=== PATIENT | male | born 1995 | race Asian ===

== ENCOUNTER 2017-12-11 07:51 | Day surgery (SDC) | payer OTHER, SELFPAY ==
[2017-12-06 08:55] VITALS: BMI 24.4
[2017-12-11] VITALS (8 sets, daily range): BP systolic 110–124; BP diastolic 69–80; PULSE 49–87; RESP 10–22; TEMP 36.3–37.3; O2SAT 97–100; BMI 24.4
--- NOTE | 2017-12-11 08:26 | SUR.OPER ---
Supine on padded OR bed, head on pillow, arms secured on padded arm boards at <90 degrees abduction, legs uncrossed, safety across abdomen, tape over blanket over nonoperative leg.
[2017-12-11] MEDS: LACTATED RINGERS 1,000 ML 42 ML IV (08:31)
--- NOTE | 2017-12-11 08:46 | PM.PREOP ---
Pre-operative Note Interval Note Pre-op Check: Yes History & Physical Reviewed by Physician and Yes Exam Performed Changes: No
[2017-12-11] MEDS: CEFAZOLIN 2 GM/100 ML FROZ.PIGGY IV (08:56)
[2017-12-11] MEDS: SODIUM CHLORIDE IRRIG SOLUTION 3,000 ML, EPINEPHrine 1 MG IRR (09:30)
[2017-12-11] MEDS: BUPIVACAINE 0.25% (PF) VIAL 30 ML INJ (09:31)
[2017-12-11] MEDS: fentaNYL 100 MCG/2 ML INJ 50 MCG IV ×2 (10:13→10:21)
--- NOTE | 2017-12-11 10:21 | PM.OP.1 ---
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 It started while in [employer]. He has progressed to the point where he has been unable to run for some time. He has been treated with physical therapy with mild improvement but persistent symptoms. Corticosteroid injection helped his symptoms confirming a an intra-articular cause. The risks, benefits, alternatives were discussed. Risks include pain, bleeding, infection, damage to nearby structures, lack of symptom relief, need for further procedures, damage to surrounding cartilage in tissues. He signed a consent form Surgeon: Rashard Hartley [employer] Director: Juvencio Bianchi Click Yes if Unassisted: No Anesthesia Type: General Operative Notes Findings: Examination under anesthesia: Range of motion full and equal to the contralateral side. Stable to varus and valgus stressing at 30?. 1A Josie's. Negative pivot shift. Stable dial at 30 and 90?. Diagnostic arthroscopy: Patellofemoral joint showed a flat trochlea with grade 2 cartilage lesions of the hypoplastic medial patellar facet. There was exuberant fat pad as well as medial and lateral plica. The lateral femoral condyle edge had the appearance of early arthritic osteophyte formation. There were soft loose bodies floating throughout the knee. Medial hemijoint showed intact cartilage and no meniscal tear. The notch showed the PCL intact and the ACL appeared to have a partial tear but was stable to arthroscopic Josie's and had good tension on the lateral wall. The lateral tibial plateau had a long linear fissure a to P which was full-thickness and the edge was debrided with a biter and shaver. The lateral meniscus was intact. The lateral femoral condyle had a rub lesion peripherally. The majority of the lateral femoral condyle cartilage was intact. Closure Type: primary Specimen(s): none sent Estimated Blood Loss (mL): 1 Blood products transfused: none Tourniquet time (min): 25 Procedure in detail: The patient was met in the preoperative hold area the day of the procedure. Operative extremity was signed. Consent was verified. He desired to proceed. He was brought to the operating room and surrendered to anesthesia. Once general anesthesia been obtained and examination was performed and the findings can be found above. He was then prepped and draped in the standard sterile fashion. A surgical time-out was held to confirm the patient procedure, identity, allergies, laterality, images, antibiotics. All were in agreement we proceeded An Esmarch was used to exsanguinate the limb and the tourniquet was elevated 250 mm of mercury. A standard diagnostic arthroscopy was performed through anterolateral and anteromedial portal sites. Anteromedial portal was created under direct visualization. The findings of the diagnostic arthroscopy can be found above. I then utilized a sucker shaver to debride the medial and lateral plica as well as the fat pad. I used a sucker shaver to debride a small portion of the friable edge of the ACL for better visualization. I then used a straight biter to bite the edge of the lateral tibial plateau cartilage lesion and taken back to a more stable base. I then used a sucker shaver on the small portion of the underside of the patella at the distal pole. I also used the shaver on the rubber region of the lateral femoral condyle border. I took final images showing that the plica had been taken down and the fat pad removed. There were no loose bodies remaining within the joint. All instruments and water was brought out of the joint and the wound was closed with buried Monocryl. Steri-Strips were applied and a dressing was placed. He was awakened and transferred to recovery room. Complications: none Condition: stable Disposition: same day surgery Plan for aftercare: Weight bear as tolerated. No impact activities for 6 weeks.
[2017-12-11] MEDS: OXYCODONE/ACETAMINOPHEN 5/325 TABLET 1 TAB PO (10:32)
--- NOTE | 2017-12-11 10:49 | SUR.PHASEII ---
Pt's spouse notified pt in [employer], call light within reach of patient.
== END 2017-12-11 11:42 | disposition home or self-care (01) ==
LOC: OR 07:53
PROVIDERS: PCP Nurse Practitioner Family; Visit Provider Orthopaedic Surgery
PROC: (CPT 29870; principal; 2017-12-11 08:45)
DX: M67.51 Plica syndrome, right knee (principal)
CPT/HCPCS: 29875; 29877; J0171; J0690; J1100; J2250; J2405; J2704; J3010

== ENCOUNTER 2019-03-03 07:43 | Emergency (ER) | payer OTHER, SELFPAY ==
[2019-03-03 07:56] VITALS: BP 127/76; PULSE 62; RESP 13; TEMP 36.1; O2SAT 98
--- NOTE | 2019-03-03 07:57 | PC.NURSE ---
pt states he woke at 0600 with room spinning, dizziness and nausea. has not vomited. went to bed last night feeling fine, nothing out of ordinary. denies pain.
--- NOTE | 2019-03-03 08:39 | ED.DIZZY ---
HPI - Dizziness General Chief Complaint: Dizziness Stated Complaint: vertigo Time Seen by Provider: 03/03/19 08:19 Source: patient Mode of arrival: Ambulatory Limitations: no limitations History of Present Illness HPI Narrative: Patient comes emergency department complaining of vertigo that started this morning when he woke up. Patient states the went to bed feeling fine last night. He has not been ill with anything recently. Patient denies any head injuries. No recent flying. The patient states he has no history of vertigo. He states that he noticed that everything seemed to be spinning when he opened his eyes. The patient states when he tried to get up and walk it was difficult because of the spinning sensation. The patient states that he has been nauseated because of the vertigo, but has not vomited. He states it is worse if he turns his head to the right and better if he turns his head to the left. He states that even just lying still in the bed and closing his eyes, he still feels as though he is spinning. Related Data Previous Rx's Medication Instructions Recorded meclizine 50 mg PO TID PRN #30 tab 03/03/19 ondansetron 4 mg PO Q6H PRN #20 tab 03/03/19 Allergies Allergy/AdvReac Type Severity Reaction Status Date / Time nickel Allergy Unknown Rash Verified 12/06/17 08:58 Review of Systems Constitutional Constitutional: Denies chills, Denies fatigue, Denies fever(s), Denies frequent falls, Denies lethargy and Denies weakness Eyes Eyes: Denies change in vision, Denies eye discharge, Denies irritation and Denies loss of vision ENT Ears, Nose, Mouth, and Throat: Denies change in voice, Reports vertigo, Reports dizziness, Denies neck pain, Denies sore throat and Denies throat swelling Cardiovascular Cardiovascular: Denies chest pain, Denies irregular heart rhythm, Denies lightheadedness, Denies palpitations, Denies dyspnea, Denies dyspnea on exertion and Denies orthopnea Respiratory Respiratory: Denies cough, Denies dyspnea, Denies dyspnea on exertion and Denies wheezing Gastrointestinal Gastrointestinal: Denies abdominal pain, Denies change in bowel habits, Denies diarrhea, Denies nausea and Denies vomiting Genitourinary Genitourinary: Denies hematuria, Denies flank pain, Denies urinary incontinence and Denies urinary urgency Musculoskeletal Musculoskeletal: Denies back pain, Denies muscle weakness, Denies neck pain, Denies numbness and Denies tingling Integumentary/Breasts Skin/Breast: Denies pruritus, Denies erythema, Denies rash and Denies wounds Neurologic Neurologic: Denies behavioral changes, Denies confusion, Reports vertigo, Reports dizziness, Denies frequent falls, Denies loss of vision, Denies numbness, Denies tingling and Denies weakness Psychiatric Psychiatric: Denies anxiety, Denies behavioral changes, Denies confusion, Denies depression, Denies homicidal ideation and Denies suicidal ideation Endocrine Endocrine: Denies fatigue, Denies flushing and Denies palpitations Hematologic/Lymphatic Hematologic/Lymphatic: Denies easy bruising Allergic/Immunologic Allergic/Immunologic: Denies urticaria, Denies throat swelling and Denies wheezing Patient History Medical History (Updated 03/03/19 @ 10:37 by Darlin Medley MD) Arthritis (Acute) Tear of meniscus of right knee (Acute) Surgical History H/O wisdom tooth extraction (Acute) Social History household members: spouse Smoking Status: Never smoker alcohol intake: current Smoking Status: Never smoker Substance Use Type: does not use Exam Initial Vital Signs Initial Vital Signs: Vital Signs Temperature 97 F L 03/03/19 07:56 Pulse Rate 62 03/03/19 07:56 Respiratory Rate 13 03/03/19 07:56 Blood Pressure 127/76 03/03/19 07:56 Pulse Oximetry 98 03/03/19 07:56 Const General: cooperative and well developed Nutritional Appearance: well nourished Orientation: alert, awake, oriented x3 and not confused [facility] Head: normocephalic and atraumatic Ears: external ears normal and TM's normal bilaterally (Mild dullness of the left TM compared to right) Nose: external nose normal and No nasal discharge Face and sinus: face symmetric and No dry mucous membranes Mouth: oral mucosae normal and moist mucous membranes Teeth and gingiva: dentition normal Eyes General: appearance normal, both eyes and all related structures Eyelids: eyelids normal Conjunctivae: conjunctivae normal Sclera: sclerae normal Pupils: PERRL EOM: EOM intact bilaterally Neck Neck: normal visual inspection, trachea midline, No lymphadenopathy, No midline deformity and No JVD Lymphatic: No lymphedema Chest Chest: normal inspection of the chest Resp Effort & Inspection: normal respiratory effort, able to speak in complete sentences, no respiratory distress and no use of accessory muscles Auscultation: clear to auscultation bilaterally, no rales, no rhonchi and no wheezes Cardio Rate: regular rate Rhythm: regular rhythm Heart Sounds: no click, no gallops, no murmurs and no rubs Pulses: normal peripheral pulses GI Inspection: non-distended Palpation: soft, no hepatosplenomegaly, No guarding, No pulsatile mass and No tender Auscultation: normal bowel sounds Back/Spine/Pelvis Back: No CVA tenderness Cervical Spine: cervical ROM normal and No pain with cervical ROM Thoracic/Lumbar Spine: thoracic and lumbar spine normal to inspection Skin General: no rashes or lesions noted, No jaundice and No petechiae Neuro General: alert, awake, oriented x3 and no focal motor deficits Cranial Nerves: CN's II-XI intact bilaterally Cognition: normal cognition Speech: speech normal Motor: muscle tone normal throughout Sensory Exam: no sensory deficits noted Other: No gross ataxia. Extrem General: full ROM, no clubbing, cyanosis or edema, no pedal edema and no calf tenderness Psych Appearance: well kempt Mental Status: mental status grossly normal Attitude: cooperative Thought Content: normal and suicidality Judgment: judgment good Course Course Course Narrative: The patient was given IV fluids and IV Valium and Zofran, and worked up with laboratory studies. The patient's vertigo is most definitely positional, and I felt that it was more likely to be peripherally- than centrally-mediated. Patient's labs were unremarkable and he was found to be completely vertigo free after the above interventions. We've discussed home management of symptoms, as well as the usual indications for return. The patient was given a prescription for meclizine. Orders Ordered: Discontinued Medications Diazepam (Valium) 5 mg IV NOW ONE Stop: 03/03/19 08:39 Last Admin: 03/03/19 08:56 Dose: 5 mg Documented by: SCANAPO Sodium Chloride (Normal Saline 0.9%) 1,000 mls @ 1,000 mls/hr IV BOLUS ONE Stop: 03/03/19 09:37 Last Infusion: 03/03/19 10:03 Dose: 0 mls/hr Documented by: Admin: 03/03/19 08:56 Dose: 1,000 mls/hr Documented by: LEDA Meclizine HCl (Antivert) 50 mg PO NOW ONE Stop: 03/03/19 09:55 Last Admin: 03/03/19 10:02 Dose: 50 mg Documented by: LEDA Ondansetron HCl (Zofran) 4 mg IV NOW ONE Stop: 03/03/19 08:39 Last Admin: 03/03/19 08:56 Dose: 4 mg Documented by: LEDA Vital Signs Vital signs: Vital Signs - 8 hr 03/03/19 07:56 Temperature 97 F L Pulse Rate 62 Respiratory Rate 13 Blood Pressure 127/76 Pulse Oximetry 98 MDM - Dizziness Medical Records Attestation: I reviewed the patient's medical records. Lab Data Attestation: I reviewed the patient's lab results. Result diagrams: 03/03/19 08:50 03/03/19 08:50 Labs: Lab Results 03/03/19 03/03/19 Range/Units 08:50 08:50 WBC 4.9 (4.5-11.0) X10^3/uL RBC 5.28 (4.5-5.9) X10^6/uL Hgb 15.3 (13.5-17.5) g/dL Hct 43.9 (41-53) % MCV 83.2 (80-100) fL MCH 28.9 (26-34) PG MCHC 34.7 (30-36) % RDW 13.1 (11.6-14.8) % Plt Count 202 (150-400) X10^3/uL Neut % (Auto) 58.8 (50-75) % Lymph % (Auto) 28.5 (25-40) % Marshall % (Auto) 9.3 (3-14) % Eos % (Auto) 2.9 (2-4) % Baso % (Auto) 0.5 (0-2) % Neut # (Auto) 2900 (0683-3396) /uL Lymph # (Auto) 1400 (5150-8590) /uL Marshall # (Auto) 500 (0-900) /uL Eos # (Auto) 100 (0-450) /uL Baso # (Auto) 0 (0-100) /uL Sodium 137 (137-145) mmol/L Potassium 3.8 (3.4-5.1) mmol/L Chloride 102 (98-107) mmol/L Carbon Dioxide 25 (22-32) mmol/L BUN 18 (9-20) mg/dL Creatinine 0.90 (0.66-1.25) mg/dL Estimated GFR > 60.0 (>60) mL/min BUN/Creatinine Ratio 20.0 (6-22) Glucose 109 H (70-100) mg/dL Calcium 9.3 (8.4-10.2) mg/dL Total Bilirubin 1.1 (0.2-1.3) mg/dL AST 46 (17-59) IU/L ALT 78 H (<50) IU/L Alkaline Phosphatase 94 (38-126) U/L Total Protein 7.4 (6.3-8.2) g/dL Albumin 4.5 (3.5-5.0) g/dL Globulin 2.9 (1.7-4.1) g/dL Albumin/Globulin Ratio 1.6 (1.0-2.8) Discharge Plan Departure Patient Disposition: Home Clinical Impression: Benign paroxysmal positional vertigo Qualifiers: Laterality: unspecified laterality Qualified Code(s): H81.10 - Benign paroxysmal vertigo, unspecified ear Discharge Date/Time: 03/03/19 10:46 Instructions: DI for Vertigo Activity Restrictions/Additional Instructions: Your labs, overall, looks good. There is no evidence of one of the emergent causes of vertigo today. Most likely, your vertigo is caused by one of the conditions of the inner ear that we've discussed. These are all self-limited and symptoms can last anywhere from a couple of days to few weeks. Please take the medication prescribed, as needed, for the vertigo and nausea. Prescriptions: New ondansetron 4 mg tablet,disintegrating 4 mg PO Q6H PRN (Reason: nausea and vomiting) Qty: 20 RF: 0 meclizine 25 mg tablet 50 mg PO TID PRN (Reason: dizziness) Qty: 30 RF: 0 Referrals: Beto Salter [Primary Care Provider] -
[2019-03-03] MEDS: ONDANSETRON 4 MG/2 ML INJ IV (08:56)
[2019-03-03] MEDS: SODIUM CHLORIDE 0.9% 1,000 ML 1000 ML IV (08:56)
[2019-03-03] MEDS: diazePAM 10 MG/2 ML SYRINGE 5 MG IV (08:56)
[2019-03-03 08:58] LABS: Add Manual Diff / Slide Review NO; Basophils Absolute Auto 0 /uL (0-100); Basophils Percent Auto 0.5 % (0-2); Eosinophils Absolute Auto 100 /uL (0-450); Eosinophils Percent Auto 2.9 % (2-4); Hematocrit 43.9 % (41-53); Hemoglobin 15.3 g/dL (13.5-17.5); Lymphocytes Absolute Auto 1400 /uL (1100-4500); Lymphocytes Percent Auto 28.5 % (25-40); Mean Corpuscular HGB Conc 34.7 % (30-36); Mean Corpuscular Hemoglobin 28.9 PG (26-34); Mean Corpuscular Volume 83.2 fL (80-100); Monocytes Absolute Auto 500 /uL (0-900); Monocytes Percent Auto 9.3 % (3-14); Neutrophils Absolute Auto 2900 /uL (1500-7000); Neutrophils Percent Auto 58.8 % (50-75); Platelet Count 202 X10^3/uL (150-400); Red Blood Cell Count 5.28 X10^6/uL (4.5-5.9); Red Cell Distribution Width 13.1 % (11.6-14.8); White Blood Cell Count 4.9 X10^3/uL (4.5-11.0)
[2019-03-03 09:08] LABS: Alanine Aminotransferase 78 IU/L (<50); Albumin 4.5 g/dL (3.5-5.0); Albumin Globulin Ratio 1.6 (1.0-2.8); Alkaline Phosphatase 94 U/L (38-126); Aspartate Aminotransferase 46 IU/L (17-59); Bilirubin Total 1.1 mg/dL (0.2-1.3); Blood Urea Nitrogen 18 mg/dL (9-20); Calcium 9.3 mg/dL (8.4-10.2); Carbon Dioxide 25 mmol/L (22-32); Chloride 102 mmol/L (98-107); Estimated Glomerular Filt Rate > 60.0 mL/min (>60); Globulin 2.9 g/dL (1.7-4.1); Glucose 109 mg/dL (70-100); HEMOLYSIS 26 (0-50); Potassium 3.8 mmol/L (3.4-5.1); Sodium 137 mmol/L (137-145); Total Protein 7.4 g/dL (6.3-8.2)
[2019-03-03 10:00] VITALS: BP 112/60; PULSE 51; O2SAT 98
[2019-03-03] MEDS: MECLIZINE HCL 12.5 MG TABLET 50 MG PO (10:02)
== END 2019-03-03 10:46 | disposition home or self-care (01) ==
PROVIDERS: Emergency Provider Emergency Medicine; PCP Nurse Practitioner Family
DX: H81.10 Benign paroxysmal vertigo, unspecified ear (principal)
CPT/HCPCS: 36415; 80053; 85025; 96361; 96374; 96375; 99284; J2405; J3360